=== PATIENT | male | born 1975 | race Asian ===

== ENCOUNTER 2019-01-30 14:18 | Emergency (ER) | payer OTHER ==
[~2019-01-30] VITALS: Ht 175.3 cm; Wt 78.9 kg
[2019-01-30] MEDS ORDERED: htn med (14:26)
[2019-01-30 14:39] VITALS: BP 143/96
[2019-01-30] MEDS ORDERED: Labetalol 5mg/ml 20ml vial IV ONE (15:15)
[2019-01-30 15:30] LABS: BASOPHILS % (AUTO) 0.8 % (0.0-2.0); EOSINOPHILS % (AUTO) 0.2 % (0.0-3.0); HEMATOCRIT 49.4 % (42.0-52.0); HEMOGLOBIN 16.6 G/DL (14.2-18.0); LYMPHOCYTES % (AUTO) 18.4 % (20.0-45.0); MEAN CORPUSCULAR VOLUME 88 FL (80-99); MONOCYTES % (AUTO) 3.7 % (1.0-10.0); NEUTROPHILS % (AUTO) 76.9 % (45.0-75.0); PLATELET COUNT 242 K/UL (150-450); RED BLOOD COUNT 5.58 M/UL (4.70-6.10); RED CELL DISTRIBUTION WIDTH 11.2 % (11.6-14.8); WHITE BLOOD COUNT 9.1 K/UL (4.8-10.8)
--- NOTE | 2019-01-30 15:36 | Emergency Room Report ---
History of Present Illness General Chief Complaint: Hypertension Source: Patient Present Illness HPI Patient reports that 2 weeks ago he was diagnosed with high blood pressure has been started on blood pressure medication which he thinks might be atenolol Today he went back for a recheck with his primary physician and recheck of the blood work his blood pressure was found to be elevated and patient sent to the emergency room Denies any chest pain denies any palpitations denies any headache he reports that he drank coffee this morning and thinks that he might be Dehydrated Allergies: Coded Allergies: No Known Allergies (Unverified , 01/30/19) Patient History Past Medical History: see triage record Reviewed Nursing Documentation: PMH: Agreed; PSxH: Agreed Nursing Documentation-PMH Past Medical History: No History, Except For Hx Cardiac Problems: Yes - high cholesterol Hx Hypertension: Yes Review of Systems All Other Systems: negative except mentioned in HPI Physical Exam Vital Signs Date Time Temp Pulse Resp B/P (MAP) Pulse Ox O2 Delivery O2 Flow Rate FiO2 01/30/19 14:20 98.1 120 22 145/105 (118) 96 Room Air Sp02 EP Interpretation: reviewed, normal General Appearance: well appearing, no apparent distress Head: normocephalic, atraumatic Eyes: bilateral eye PERRL, bilateral eye EOMI ENT: hearing grossly normal, EOM grossly intact Neck: supple Respiratory: lungs clear Cardiovascular #1: tachycardia Gastrointestinal: non tender, soft Genitourinary: no CVA tenderness Musculoskeletal: normal inspection Neurologic: alert, oriented x3 Skin: no rash Lymphatic: no adenopathy Medical Decision Making Diagnostic Impression: Primary Impression: Hypertension ER Course Patient is a fairly complex patient with multiple differential to consideration including but not limited to cardiac cardiopulmonary and vascular emergencies Patient's blood work is at baseline levels Patient was given a dose of beta-law here symptoms have significantly improved patient's thyroid levels and other test continue to be normal And patient stable for close outpatient follow-up with possible further management of his anti-hypertensive medication Labs Test 01/30/19 14:35 White Blood Count 9.1 K/UL (4.8-10.8) Red Blood Count 5.58 M/UL (4.70-6.10) Hemoglobin 16.6 G/DL (14.2-18.0) Hematocrit 49.4 % (42.0-52.0) Mean Corpuscular Volume 88 FL (80-99) Mean Corpuscular Hemoglobin 29.8 PG (27.0-31.0) Mean Corpuscular Hemoglobin Concent 33.7 G/DL (32.0-36.0) Red Cell Distribution Width 11.2 % (11.6-14.8) Platelet Count 242 K/UL (150-450) Mean Platelet Volume 5.9 FL (6.5-10.1) Neutrophils (%) (Auto) 76.9 % (45.0-75.0) Lymphocytes (%) (Auto) 18.4 % (20.0-45.0) Monocytes (%) (Auto) 3.7 % (1.0-10.0) Eosinophils (%) (Auto) 0.2 % (0.0-3.0) Basophils (%) (Auto) 0.8 % (0.0-2.0) Sodium Level 137 MMOL/L (136-145) Potassium Level 4.1 MMOL/L (3.5-5.1) Chloride Level 102 MMOL/L (98-107) Carbon Dioxide Level 27 MMOL/L (21-32) Anion Gap 8 mmol/L (5-15) Blood Urea Nitrogen 13 mg/dL (7-18) Creatinine 0.8 MG/DL (0.55-1.30) Estimat Glomerular Filtration Rate > 60 mL/min (>60) Glucose Level 124 MG/DL (74-106) Calcium Level 9.9 MG/DL (8.5-10.1) Total Bilirubin 0.4 MG/DL (0.2-1.0) Aspartate Amino Transf (AST/SGOT) 22 U/L (15-37) Alanine Aminotransferase (ALT/SGPT) 55 U/L (12-78) Alkaline Phosphatase 49 U/L (46-116) Total Creatine Kinase 104 U/L (26-308) Total Protein 7.7 G/DL (6.4-8.2) Albumin 4.5 G/DL (3.4-5.0) Globulin 3.2 g/dL Albumin/Globulin Ratio 1.4 (1.0-2.7) Lipase 177 U/L (73-393) Thyroid Stimulating Hormone (TSH) 0.827 uiU/mL (0.358-3.740) Free Thyroxine 0.91 NG/DL (0.76-1.46) Urine Opiates Screen Negative (NEGATIVE) Urine Barbiturates Screen Negative (NEGATIVE) Phencyclidine (PCP) Screen Negative (NEGATIVE) Urine Amphetamines Screen Negative (NEGATIVE) Urine Benzodiazepines Screen Negative (NEGATIVE) Urine Cocaine Screen Negative (NEGATIVE) Urine Marijuana (THC) Screen Negative (NEGATIVE) EKG Diagnostic Results Rate: tachycardiac Rhythm: other ST Segments: no acute changes Rhythm Strip Diag. Results EP Interpretation: yes Rate: 88 Rhythm: NSR, no PVC's, no ectopy Chest X-Ray Diagnostic Results Chest X-Ray Diagnostic Results : Chest X-Ray Ordered: Yes # of Views/Limited/Complete: 1 View Indication: Chest Pain EP Interpretation: Yes Interpretation: no consolidation, no effusion, no pneumothorax Impression: No acute disease Electronically Signed by: Berta Baez DO Last Vital Signs Date Time Temp Pulse Resp B/P (MAP) Pulse Ox O2 Delivery O2 Flow Rate FiO2 01/30/19 15:14 115 143/96 01/30/19 14:46 28 Room Air 01/30/19 14:39 98.1 97 Status: improved Disposition: HOME, SELF-CARE Condition: Improved Referrals: [facility],REFERRING (PCP) Additional Instructions: Patient is provided with the discharge instructions notified to follow up with primary doctor in the next 2-3 days otherwise return to the er with any worsening symptoms. Please note that this report is being documented using [employer] technology. This can lead to erroneous entry secondary to incorrect interpretation by the dictating instrument. Berta Baez DO Jan 30, 2019 15:36
[2019-01-30 16:04] LABS: ANION GAP 8 mmol/L (5-15); BLOOD UREA NITROGEN 13 mg/dL (7-18); CALCIUM 9.9 MG/DL (8.5-10.1); CARBON DIOXIDE 27 MMOL/L (21-32); CHLORIDE 102 MMOL/L (98-107); CREATININE 0.8 MG/DL (0.55-1.30); POTASSIUM 4.1 MMOL/L (3.5-5.1); SODIUM 137 MMOL/L (136-145)
[2019-01-30 16:11] LABS: ALANINE AMINOTRANSFERASE 55 U/L (12-78); ALBUMIN 4.5 G/DL (3.4-5.0); ALBUMIN/GLOBULIN RATIO 1.4 (1.0-2.7); ALKALINE PHOSPHATASE 49 U/L (46-116); ASPARTATE AMINO TRANSFERASE 22 U/L (15-37); BILIRUBIN,TOTAL 0.4 MG/DL (0.2-1.0); CREATINE KINASE 104 U/L (26-308)
--- NOTE | 2019-01-30 16:16 | Diagnostic Imaging Report ---
Indication: Chest pain Technique: One view of the chest Comparison: none Findings: Lungs and pleural spaces are clear. Heart size is normal. Impression: No acute process
[2019-01-30 16:18] VITALS: BP 143/96
[2019-01-30 17:22] VITALS: BP 128/93
[2019-01-30 17:23] VITALS: BP 128/93
== END 2019-01-30 17:23 | disposition home or self-care (01) ==
LOC: EMR 14:59
DX: I10 Essential (primary) hypertension (principal); E78.00 Pure hypercholesterolemia, unspecified
CPT/HCPCS: 36415; 71045; 80053; 80307; 82550; 83690; 84439; 84443; 85025; 93005; 96361; 96374; J7030; Z7502; 99284